=== PATIENT | female | born 1980 | race Caucasian/White ===

== ENCOUNTER → 2021-04-23 | Outpatient (REF) ==
--- NOTE | 2021-04-23 16:33 | REP ---
INDICATION: FIBROMYALGIA. COMPARISON: None. TECHNIQUE: Four views of the right wrist. FINDINGS: Four views of the right wrist demonstrate overall normal mineralization. Joint spaces are preserved. No erosive change or bony deformity is seen. Periarticular soft tissues are unremarkable. IMPRESSION: Negative radiographs of the right wrist. <Electronically signed by Jake Maldonado > 04/23/21 [id number]
--- NOTE | 2021-04-23 16:50 | REP ---
INDICATION: DDD. COMPARISON: None. TECHNIQUE: AP and lateral views of the right forearm are presented. FINDINGS: AP and latter views of the oral right forearm demonstrate normal bones, joints, and soft tissues. No fracture or subluxation is seen. No opaque foreign body noted. IMPRESSION: Negative right forearm series. <Electronically signed by Jake Maldonado > 04/23/21 [id number]
--- NOTE | 2021-04-23 16:53 | REP ---
INDICATION: DDD. COMPARISON: None. TECHNIQUE: Three views, AP lateral and lateral spot radiographs. FINDINGS: There is straightening of the normal lumbar lordosis on lateral film. Left lumbar vertebral body heights are preserved. The AP radiograph demonstrates a minimal dextroconvex curvature. Pedicles and posterior elements are intact. There is no evidence of fracture or collapse. Psoas margins are symmetric. Sacrum and SI joints are intact. Disc spaces are maintained except at L4-5 where there is slight narrowing. IMPRESSION: Straightening and slight narrowing of the L4-5 disc. Otherwise unremarkable. <Electronically signed by Jake Maldonado > 04/23/21 [id number]
== END ==
LOC: M RAD 15:09
PROVIDERS: ATTEND Internal Medicine
DX: Z00.00 Encounter for general adult medical examination without abnormal findings (principal)